=== PATIENT | male | born 1980 ===

== ENCOUNTER 2021-04-12 16:43 | Emergency (ER) | payer OTHER ==
[~2021-04-12] VITALS: Ht 177.8 cm; Wt 84.8 kg
[2021-04-12] MEDS ORDERED: TENORMIN25 MG PO (16:58)
[2021-04-12] MEDS ORDERED: WELLBUTRIN XL150 M1 PO (16:58)
[2021-04-12] MEDS ORDERED: WELLBUTRIN XL300 MG PO (16:58)
[2021-04-12] MEDS ORDERED: CANDESARTAN CIL16 MG PO (16:58)
== END 2021-04-12 18:22 | disposition home or self-care (01) ==
LOC: ER 16:43
DX: S61.220A Laceration with foreign body of right index finger without damage to nail, initial encounter (principal); W26.0XXA Contact with knife, initial encounter; Y93.89 Activity, other specified; Y92.89 Other specified places as the place of occurrence of the external cause; Y99.8 Other external cause status